=== PATIENT | female | born 1960 | race Caucasian/White ===

== ENCOUNTER 2017-03-03 01:10 | Inpatient (IN) | payer MEDICAID, OTHER ==
[~2017-03-03] VITALS: Ht 157.5 cm; Wt 68.5 kg
[2017-03-03 02:05] LABS: Basophils # (auto) 0.1 uL; Basophils % (auto) 0.5 % (0.0-2.0); CONDITION Y; Eosinophils # (auto) 0.4 uL; Eosinophils % (auto) 2.3 % (0.0-7.0); Hemoglobin 13.7 g/dL (12.2-16.2); Lymphocytes # (auto) 3.4 uL; Lymphocytes % (auto) 21.3 % (10.0-50.0); Mean Corpuscular Hemoglobin 31.4 pg (28.0-32.0); Mean Corpuscular Hgb Conc. 34.3 g/dL (32.0-36.0); Mean Corpuscular Volume 91.6 fL (80.0-100.0); Mean Platelet Volume 9.6 fL (7.4-10.4); Monocytes # (auto) 0.9 uL; Monocytes % (auto) 5.6 % (0.0-12.0); Neutrophils # (auto) 11.1 uL; Neutrophils % (auto) 70.3 % (37.0-80.0); Platelet Count (auto) 287 10^3/uL (140-450); Red Cell Distribution Width 13.3 % (11.6-16.0); White Blood Cell 15.8 10^3/uL (4.4-10.8)
[2017-03-03 02:20] LABS: INR 1.05 (0.9-1.15); Partial Thromboplastin Time 28.9 sec (22.64-33.71); Prothrombin Time 11.5 sec (9.37-12.3)
[2017-03-03 02:36] LABS: Albumin 3.8 g/dL (3.4-5.0); Amylase 98 U/L (25-115); Anion Gap 10 (5-15); Aspartate Aminotransferase 11 U/L (15-37); BUN/Creatinine Ratio 11.3; Blood Urea Nitrogen 11 mg/dL (7-18); Calcium 8.6 mg/dL (8.5-10.1); Carbon Dioxide 21 mmol/L (21-32); Chloride 113 mmol/L (98-107); GFR African American 76 mL/min; GFR Non-African American 63 mL/min; Glucose 97 mg/dL (74-106); Magnesium 2.2 mg/dL (1.6-2.6); Potassium 3.6 mmol/L (3.5-5.1); Sodium 144 mmol/L (136-145)
[2017-03-03 02:42] LABS: Alkaline Phosphatase 97 U/L (45-117); Bilirubin, Total 0.2 mg/dL (0.2-1.0); Total Protein 7.6 g/dL (6.4-8.2)
[2017-03-03 05:00] LABS: Acetaminophen < 2.0 ug/mL (10-30); Salicylate 3.8 mg/dL (2.8-20.0)
[2017-03-03 05:40] LABS: Urine RBC None Seen /hpf (0 - 4)
[2017-03-03 05:55] LABS: Urine Bilirubin Negative (Negative); Urine Blood Negative /uL (Negative); Urine Color Yellow (Yellow); Urine Glucose Normal (Normal); Urine Ketone Negative (Negative); Urine Nitrite Negative (Negative); Urine Squamous Epithelial Cell FEW /hpf (<5); Urine Urobilinogen Normal (Negative)
[2017-03-03] MEDS ORDERED: ACETAMINOPHEN 500 MG TAB PO PRN (07:00)
[2017-03-03] MEDS ORDERED: NITROGLYCERIN 0.4 MG SL TAB SL PRN (07:00)
[2017-03-03] MEDS ORDERED: TEMAZEPAM 15 MG CAP PO PRN (07:00)
[2017-03-03] MEDS ORDERED: ONDANSETRON HCL 4 MG/2 ML VIAL IV PRN (07:00)
[2017-03-03] MEDS ORDERED: MORPHINE SULF INJ 2 MG/ML SYRINGE 1ML IV PRN (07:00)
[2017-03-03 07:59] LABS: Cholesterol 173 mg/dL (< 200); HDL Cholesterol 44 mg/dL (40-59); LDL Cholesterol 93 mg/dL (< 100); Triglycerides 346 mg/dL (< 150)
[2017-03-03] MEDS: SODIUM CHLORIDE 0.9% 1,000 ML IV SCH ×2 (08:00→20:56)
[2017-03-03] MEDS: MORPHINE SULF INJ 2 MG/ML SYRINGE 1ML IV PRN (08:28)
[2017-03-03] MEDS ORDERED: LORazepam 2MG/ML-1ML VIAL IV PRN ×2 (09:15→11:15)
[2017-03-03] MEDS: LORazepam 0.5 MG TAB PO PRN (09:46)
[2017-03-03 10:19] LABS: Temperature: 24.3 C (20.0-25.0)
[2017-03-03] MEDS ORDERED: cefTRIAXone 1GM/50ML D5W 50 ML IV ONE (11:15)
[2017-03-03] MEDS ORDERED: VANCOMYCIN PER PHARMACY 0 MG IV SCH (11:15)
[2017-03-03] MEDS ORDERED: VANCOMYCIN 1GM/250ML D5W 250 ML IV ONE (11:45)
[2017-03-03] MEDS ORDERED: GABAPENTIN 100 MG CAP PO SCH (14:00)
[2017-03-03] MEDS: GABAPENTIN 300 MG CAP PO SCH ×3 (14:07→22:00)
[2017-03-03] MEDS: buPROPion HCL 75 MG TAB PO SCH (20:29)
[2017-03-03] MEDS: PRAMIPEXOLE DIHYDROCHLORIDE MO 0.25 MG TAB PO SCH (22:00)
[2017-03-03] MEDS: VANCOMYCIN 750 MG in D5W 5% 250 ML IV SCH (23:57)
[2017-03-04] VITALS (8 sets, daily range): BP systolic 143–181; BP diastolic 69–88
[2017-03-04] MEDS: MORPHINE SULF INJ 2 MG/ML SYRINGE 1ML IV PRN ×5 (00:02→23:56)
[2017-03-04] MEDS: LORazepam 0.5 MG TAB PO PRN (03:34)
[2017-03-04] MEDS: HYDROcodone-ACET 5/325MG TAB PO PRN ×2 (03:34→11:30)
[2017-03-04 03:51] LABS: Basophils # (auto) 0.1 uL; Basophils % (auto) 0.8 % (0.0-2.0); CONDITION Y; Eosinophils # (auto) 0.3 uL; Eosinophils % (auto) 3.4 % (0.0-7.0); Hematocrit 40.9 % (36.0-46.0); Hemoglobin 13.8 g/dL (12.2-16.2); Lymphocytes # (auto) 2.8 uL; Lymphocytes % (auto) 30.7 % (10.0-50.0); Mean Corpuscular Hemoglobin 31.2 pg (28.0-32.0); Mean Corpuscular Hgb Conc. 33.8 g/dL (32.0-36.0); Mean Corpuscular Volume 92.2 fL (80.0-100.0); Mean Platelet Volume 9.6 fL (7.4-10.4); Monocytes # (auto) 0.6 uL; Monocytes % (auto) 6.1 % (0.0-12.0); Neutrophils # (auto) 5.4 uL; Platelet Count (auto) 267 10^3/uL (140-450); Red Cell Distribution Width 12.9 % (11.6-16.0); White Blood Cell 9.2 10^3/uL (4.4-10.8)
[2017-03-04 04:17] LABS: B-Type Natriuretic Peptide 68.03 pg/mL (0-100)
[2017-03-04 04:19] LABS: Albumin 3.4 g/dL (3.4-5.0); Alkaline Phosphatase 85 U/L (45-117); Anion Gap 8 (5-15); Aspartate Aminotransferase 12 U/L (15-37); BUN/Creatinine Ratio 16.7; Bilirubin, Total 0.4 mg/dL (0.2-1.0); Blood Urea Nitrogen 14 mg/dL (7-18); Calcium 8.5 mg/dL (8.5-10.1); Carbon Dioxide 24 mmol/L (21-32); Chloride 109 mmol/L (98-107); GFR African American 90 mL/min; GFR Non-African American 75 mL/min; Glucose 135 mg/dL (74-106); Potassium 3.7 mmol/L (3.5-5.1); Sodium 141 mmol/L (136-145); Total Protein 6.8 g/dL (6.4-8.2)
[2017-03-04 04:21] LABS: Temperature: 22.3 C (20.0-25.0)
[2017-03-04] MEDS: GABAPENTIN 300 MG CAP PO SCH ×3 (06:00→22:23)
[2017-03-04] MEDS: buPROPion HCL 75 MG TAB PO SCH ×2 (06:53→18:23)
[2017-03-04] MEDS ORDERED: GABA-339 PO (07:44)
[2017-03-04] MEDS ORDERED: CHOLCAP4 PO (07:44)
[2017-03-04] MEDS ORDERED: HYDR-4663 PO (07:44)
[2017-03-04] MEDS ORDERED: BACL20TA PO (07:44)
[2017-03-04] MEDS ORDERED: CYA100I SL (07:44)
[2017-03-04] MEDS ORDERED: CITA-73 PO (07:44)
[2017-03-04] MEDS: SODIUM CHLORIDE 0.9% 1,000 ML IV SCH (10:10)
[2017-03-04] MEDS: cefTRIAXone 1GM/50ML D5W 50 ML IV SCH (10:35)
[2017-03-04] MEDS: VANCOMYCIN 750 MG in D5W 5% 250 ML IV SCH ×2 (12:00→23:56)
[2017-03-04] MEDS: PRAMIPEXOLE DIHYDROCHLORIDE MO 0.25 MG TAB PO SCH (22:23)
[2017-03-05] MEDS: cloNIDine HCL 0.1 MG TAB PO PRN ×2 (01:20→22:18)
[2017-03-05 05:08] VITALS: BP 138/72
[2017-03-05 05:56] LABS: Basophils # (auto) 0.1 uL; Basophils % (auto) 0.7 % (0.0-2.0); CONDITION Y; Eosinophils # (auto) 0.3 uL; Eosinophils % (auto) 3.9 % (0.0-7.0); Hematocrit 37.7 % (36.0-46.0); Hemoglobin 12.7 g/dL (12.2-16.2); Lymphocytes # (auto) 2.5 uL; Lymphocytes % (auto) 29.9 % (10.0-50.0); Mean Corpuscular Hemoglobin 31.4 pg (28.0-32.0); Mean Corpuscular Hgb Conc. 33.8 g/dL (32.0-36.0); Mean Corpuscular Volume 92.9 fL (80.0-100.0); Mean Platelet Volume 9.9 fL (7.4-10.4); Monocytes # (auto) 0.6 uL; Monocytes % (auto) 6.9 % (0.0-12.0); Neutrophils # (auto) 4.8 uL; Neutrophils % (auto) 58.6 % (37.0-80.0); Platelet Count (auto) 260 10^3/uL (140-450); Red Cell Distribution Width 13.1 % (11.6-16.0); White Blood Cell 8.3 10^3/uL (4.4-10.8)
[2017-03-05] MEDS: SODIUM CHLORIDE 0.9% 1,000 ML IV SCH ×3 (06:00→21:38)
[2017-03-05 06:12] LABS: Albumin 3.2 g/dL (3.4-5.0); BUN/Creatinine Ratio 14.8; Bilirubin, Total 0.3 mg/dL (0.2-1.0); Calcium 8.1 mg/dL (8.5-10.1); Potassium 3.3 mmol/L (3.5-5.1); Total Protein 6.5 g/dL (6.4-8.2)
[2017-03-05] MEDS: GABAPENTIN 300 MG CAP PO SCH ×3 (06:18→21:32)
[2017-03-05] MEDS: buPROPion HCL 75 MG TAB PO SCH ×2 (06:19→18:48)
[2017-03-05 08:20] VITALS: BP 140/80
[2017-03-05] MEDS: cefTRIAXone 1GM/50ML D5W 50 ML IV SCH (09:57)
[2017-03-05] MEDS: MORPHINE SULF INJ 2 MG/ML SYRINGE 1ML IV PRN ×2 (11:14→16:53)
[2017-03-05] MEDS ORDERED: SUMAtriptan SUCCINATE 25 MG TAB PO PRN (11:45)
[2017-03-05] MEDS: BOOST PLUS 8 ounce PO SCH ×2 (12:00→18:00)
[2017-03-05 12:11] VITALS: BP 159/82
[2017-03-05] MEDS: VANCOMYCIN 750 MG in D5W 5% 250 ML IV SCH ×2 (13:09→23:35)
[2017-03-05 17:00] VITALS: BP 152/89
[2017-03-05] MEDS: PRAMIPEXOLE DIHYDROCHLORIDE MO 0.25 MG TAB PO SCH (21:32)
[2017-03-05 22:00] VITALS: BP 167/79
[2017-03-06] MEDS: MORPHINE SULF INJ 2 MG/ML SYRINGE 1ML IV PRN ×3 (01:05→09:10)
[2017-03-06 05:00] VITALS: BP 141/77
[2017-03-06] MEDS: GABAPENTIN 300 MG CAP PO SCH ×2 (05:33→13:43)
[2017-03-06 06:00] LABS: Basophils # (auto) 0.1 uL; Basophils % (auto) 0.7 % (0.0-2.0); CONDITION Y; Eosinophils # (auto) 0.4 uL; Eosinophils % (auto) 4.2 % (0.0-7.0); Hemoglobin 12.6 g/dL (12.2-16.2); Lymphocytes # (auto) 2.3 uL; Lymphocytes % (auto) 26.8 % (10.0-50.0); Mean Corpuscular Hemoglobin 31.4 pg (28.0-32.0); Mean Corpuscular Volume 92.3 fL (80.0-100.0); Monocytes # (auto) 0.7 uL; Monocytes % (auto) 7.9 % (0.0-12.0); Neutrophils # (auto) 5.2 uL; Neutrophils % (auto) 60.4 % (37.0-80.0); Platelet Count (auto) 229 10^3/uL (140-450); Red Cell Distribution Width 12.8 % (11.6-16.0); White Blood Cell 8.6 10^3/uL (4.4-10.8)
[2017-03-06 06:36] LABS: Potassium 3.7 mmol/L (3.5-5.1)
[2017-03-06] MEDS: buPROPion HCL 75 MG TAB PO SCH (06:37)
[2017-03-06 06:45] LABS: Albumin 3.1 g/dL (3.4-5.0); BUN/Creatinine Ratio 19.3; Calcium 8.5 mg/dL (8.5-10.1)
[2017-03-06 06:52] LABS: Bilirubin, Total 0.2 mg/dL (0.2-1.0); Total Protein 6.3 g/dL (6.4-8.2)
[2017-03-06] MEDS: BOOST PLUS 8 ounce PO SCH ×3 (07:33→17:30)
[2017-03-06 09:00] VITALS: BP 146/77
[2017-03-06] MEDS: cefTRIAXone 1GM/50ML D5W 50 ML IV SCH (09:00)
[2017-03-06] MEDS: VANCOMYCIN 750 MG in D5W 5% 250 ML IV SCH (11:59)
[2017-03-06] MEDS: HYDROcodone-ACET 5/325MG TAB PO PRN (12:00)
[2017-03-06] MEDS: LORazepam 0.5 MG TAB PO PRN (12:53)
[2017-03-06 13:00] VITALS: BP 141/84
[2017-03-06] MEDS ORDERED: BACLOFEN 10 MG TAB PO SCH (14:00)
[2017-03-06] MEDS ORDERED: BUP75T PO (15:02)
[2017-03-06 15:57] VITALS: BP 141/84
== END 2017-03-06 18:20 | disposition home or self-care (01) | DRG 52 ==
LOC: EDBD 01:10 → ER 01:10 → TELE 01:11 → TELE-EAST 12:05
PROVIDERS: ADMIT Nurse Practitioner Family; ATTEND Internal Medicine
DX: G92 Toxic encephalopathy (principal); M32.9 Systemic lupus erythematosus, unspecified; E44.0 Moderate protein-calorie malnutrition; G62.9 Polyneuropathy, unspecified; F32.9 Major depressive disorder, single episode, unspecified; D72.829 Elevated white blood cell count, unspecified; N18.2 Chronic kidney disease, stage 2 (mild); Z68.27 Body mass index [BMI] 27.0-27.9, adult; F17.200 Nicotine dependence, unspecified, uncomplicated; F41.9 Anxiety disorder, unspecified; G25.81 Restless legs syndrome; G89.29 Other chronic pain; K59.00 Constipation, unspecified; Z82.49 Family history of ischemic heart disease and other diseases of the circulatory system; Z83.3 Family history of diabetes mellitus; Z86.73 Personal history of transient ischemic attack (TIA), and cerebral infarction without residual deficits; G56.00 Carpal tunnel syndrome, unspecified upper limb; G89.4 Chronic pain syndrome; I12.9 Hypertensive chronic kidney disease with stage 1 through stage 4 chronic kidney disease, or unspecified chronic kidney disease
CPT/HCPCS: 36415; 70450; 71010; 74022; 74176; 80053; 80061; 80202; 80307; 80329; 81001; 82150; 82607; 82728; 82746; 83540; 83550; 83605; 83690; 83735; 83880; 84443; 84484; 85025; 85610; 85652; 85730; 87040; 87081; 87086; 93005; 93306; 93886; 95819; 96365; 96368; 96375; J0696; J2405; J7060